=== PATIENT | male | born 1980 | race African-American/Black ===

== ENCOUNTER 2017-03-18 04:55 | Emergency (ER) | payer BC ==
[2017-03-18 05:05] VITALS: BP 144/100
--- NOTE | 2017-03-18 05:43 | EDM.PDOC ---
ED HPI GENERAL MEDICAL PROBLEM - General Chief Complaint: ENT Problem Stated Complaint: CONGESTION HEADACHE Time Seen by Provider: 03/18/17 05:10 Source of Information: Reports: Patient History Limitations: Reports: No Limitations - History of Present Illness INITIAL COMMENTS - FREE TEXT/NARRATIVE: 36-year-old male attends the ED complaining of diffuse mid facial pain and severe nasal congestion. He states he has a problem with allergic rhinitis and intermittently gets sinus infection. States currently he has throbbing pain behind both eyes forehead and in his midface which is worsened when he bends over. Been present for the last several days but become much worse over the last 24 hours to the point that he left the workplace today due to the facial pain and discomfort. He is blowing his nose and getting out green mucus. He is aware of postnasal drip with cough in the mornings. He states this is happened to him on several occasions in the past. No associated fever or chills that he is aware of. He denies a chronic cough or sputum production only first thing in the morning. States his face hurts and is painful to touch particular in the maxillary sinus distribution. Onset: Gradual Onset Date: 03/12/17 Duration: Day(s):, Getting Worse Location: Reports: Head, Face Quality: Reports: Ache, Pressure Severity: Moderate (Rates his pain as 7 or 8 out of 10.) Improves with: Reports: None Worsens with: Reports: Other Context: Denies: Activity, Exercise, Lifting, Sick Contact, Trauma, Other Associated Symptoms: Reports: Cough, Fever/Chills (2 min cough with sputum particular first thing in the morning aware postnasal drip.), Headaches ( Chills but no defined fever), Loss of Appetite ( more facial pain and headache. ), Malaise. 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 He also started an over- the-counter antihistamine without decongestant in it with no relief.), Other ( see below) Headache Pain Score (Numeric/FACES): 10 - Related Data Allergies Allergy/AdvReac Type Severity Reaction Status Date / Time No Known Allergies Allergy Verified 03/18/17 05:05 Home Meds: Home Meds Amoxicillin/Clavulanate K [Augmentin 500 MG\125 MG] 1 tab PO Q12HR #24 tablet [Rx] Loratadine/Pseudoephedrine [Claritin-D 24 Hour Tablet] 1 each PO DAILY #5 tab.er.24h 03/18/17 [Rx] Past Medical History - Past Health History Medical/Surgical History: Denies Medical/Surgical History HEENT History: Reports: Sinusitis Cardiovascular History: Reports: Hypertension Social & Family History - Family History Family Medical History: Noncontributory - Tobacco Use Smoking Status *Q: Never Smoker Years of Tobacco use: 5 - Recreational Drug Use Recreational Drug Use: No - Living Situation & Occupation Living situation: Reports: Single Occupation: Employed ED ROS ENT - Review of Systems Review Of Systems: See Below Constitutional: Reports: Chills, Malaise, Weakness, Decreased Appetite (States food doesn't taste right.). Denies: Fever HEENT: Reports: Glasses, Rhinitis, Sinus Problem. Denies: Contact Lenses, Dental Pain, Ear Discharge, Ear Pain, Eye Discharge, Eye Pain, Hearing Loss, Nosebleed, Nose Pain, Throat Pain, Throat Swelling, Vertigo Respiratory: Reports: Cough. Denies: Hemoptysis (Postnasal drip with intermittent cough of greenish sputum.) Cardiovascular: Reports: No Symptoms Endocrine: Reports: No Symptoms GI/Abdominal: Reports: No Symptoms : Reports: No Symptoms Musculoskeletal: Reports: No Symptoms Skin: Reports: No Symptoms Neurological: Reports: Headache Psychiatric: Reports: No Symptoms ED EXAM, ENT - Physical Exam Exam: See Below Exam Limited By: No Limitations General Appearance: Alert, WD/WN, No Apparent Distress Eye Exam: Bilateral Eye: Normal Inspection Ears: Other (He has evidence of arthrosclerosis or scarring of the right anterior tympanic membrane. He doesn't remember ever rupturing his eardrums. There was no fluid in the middle ear cavities.) Nose: Other (Patient has marked swelling of the turbinates bilaterally particularly on the left side with near complete occlusion. Greenish mucus present in both nares worse on the left side. No nasal polyps identified) Mouth/Throat: Normal Inspection, Normal Gums, Normal Lips Head: Atraumatic, Normocephalic, Sinus Tenderness (Patient has marked tenderness to all sinuses worse on the left side as compared to the right this involves both the ethmoids the frontals and the maxillary sinuses.) Neck: Normal Inspection, Supple, Non-Tender, Full Range of Motion. No: Lymphadenopathy (L), Lymphadenopathy (R) Respiratory/Chest: No Respiratory Distress, Lungs Clear, Normal Breath Sounds, No Accessory Muscle Use Cardiovascular: Normal Peripheral Pulses, Regular Rate, Rhythm, No Edema, No Murmur Skin: Warm, Dry, Intact, Normal Color, No Rash, Other (No evidence of fever at this time) Course - Vital Signs Last Recorded V/S: Last Vital Signs Temp 36.0 C 03/18/17 05:02 Pulse 82 03/18/17 05:02 Resp 16 03/18/17 05:02 BP 144/100 H 03/18/17 05:02 Pulse Ox - Orders/Labs/Meds Meds: Medications Discontinued Medications Generic Name Dose Route Start Last Admin Trade Name Freq PRN Reason Stop Dose Admin Amoxicillin/Clavulanate Potassium 1 tab 03/18/17 05:53 03/18/17 06:09 Augmentin 500 Mg\125 Mg PO 03/18/17 05:54 1 tab ONETIME ONE Administration - Radiology Interpretation Free Text/Narrative:: 36-year-old male presents the ED with diffuse facial and headache pain. History of gradually worsening sinus pressure discomfort over the last week. Believes it was set off by seasonal allergies. He is currently here working on [employer]. Examination suggests diffuse pansinusitis with marked tenderness on the left maxillary and ethmoid and frontal sinuses. The left naris is more occluded in the right on exam with turbinate swelling without polyp formation. He is aware of postnasal drip and productive cough in the mornings. He has hypertension but usually it's well-controlled. Placed him on Claritin-D 24 hour release 1 tablet in the morning for the next 5 consecutive days to promote drainage. Started on antibiotic Augmentin 500 mg twice daily for the next 12 days. First tablet will be provided in the easiest morning since the drug stores will not be open for another 4 hours. Note was given to place him off of work for the next 48 hours and until his symptoms settle down a bit Departure - Departure Time of Disposition: 05:52 Disposition: Home, Self-Care 01 Condition: Fair Clinical Impression: Acute sinusitis Qualifiers: Sinusitis location: pansinusitis Recurrence: non-recurrent Qualified Code(s): J01.40 - Acute pansinusitis, unspecified - Discharge Information Prescriptions: Amoxicillin/Clavulanate K [Augmentin 500 MG\125 MG] 1 tab PO Q12HR #24 tablet Loratadine/Pseudoephedrine [Claritin-D 24 Hour Tablet] 1 each PO DAILY #5 tab.er.24h Instructions: Sinusitis, Adult, [id number] Referrals: PCP,None [Primary Care Provider] - Forms: ED Department Discharge, ED Return to Work/School Form Additional Instructions: Evaluation in the emergency room this morning in regards to diffuse facial pain particularly over the left maxillary sinus as well as ethmoid and frontal sinuses. Clinically you have acute pansinusitis which means multiple of your sinuses are infected at this time. No abnormalities were detected in the middle ear cavities. Treatment is to be antibiotic Augmentin 500 mg twice daily for the next 12 days. First tablet was provided in the ED this morning. Second medication is Claritin-D 24-hour release which is taken first thing in the morning for the next 5 consecutive days to promote drainage of the sinuses and relieve the pressure. Continue Motrin 600 mg every 6 hours or Aleve 2 tablets every 8 hours to relieve pain and inflammation. Expect gradual improvement over the next 48-72 hours.
[2017-03-18] MEDS ORDERED: Amoxicillin/Clavulanate K 500-125 MG Tab PO ONE (05:53)
== END 2017-03-18 06:11 | disposition home or self-care (01) ==
LOC: JD.ED 04:55
DX: J01.40 Acute pansinusitis, unspecified (principal); I10 Essential (primary) hypertension
CPT/HCPCS: 99283; A9270

== ENCOUNTER 2018-01-22 03:12 | Emergency (ER) | payer SELFPAY ==
[2018-01-22] MEDS ORDERED: Ondansetron 4 MG/2 ML SDV IVPUSH ONE (03:59)
[2018-01-22] MEDS ORDERED: Sodium Chloride 0.9% 1,000 ML IV SCH (04:00)
--- NOTE | 2018-01-22 04:01 | EDM.PDOC ---
ED HPI GENERAL MEDICAL PROBLEM - General Chief Complaint: Abdominal Pain Stated Complaint: DIARRHEA Time Seen by Provider: 01/22/18 03:44 Source of Information: Reports: Patient History Limitations: Reports: No Limitations - History of Present Illness INITIAL COMMENTS - FREE TEXT/NARRATIVE: The patient states that he developed watery diarrhea this past Monday, . He experiences about 3-4 episodes per day. He then developed right lower quadrant pain, sharp and stabbing in character, Monday morning, 2017. The pain has slowly been improving since then. He had nausea and emesis Monday morning, and nausea since. No recent urinary symptoms. No recent fever. The patient states that he has tried Pepto-Bismol and a total of 2 tablets of Imodium, without significant relief. The patient states that he ate a salad and some raw vegetables from a [employer] on Monday or Monday, 01/16/2018 or 01/17/2018. No similarly contacts. No recent antibiotics. No recent travel. No prior similar symptoms. The patient states that he has a PCP, but he does not recall her name. The patient's last oral solid food was around 19:30 last night. Right Lower Abdomen Pain Score (Numeric/FACES): 9 - Related Data Allergies Allergy/AdvReac Type Severity Reaction Status Date / Time No Known Allergies Allergy Verified 01/22/18 03:23 Home Meds: Home Meds Loratadine/Pseudoephedrine [Claritin-D 24 Hour Tablet] 1 each PO DAILY #5 tab.er.24h 03/18/17 [Rx] Ondansetron [Zofran ODT] 1 tab PO Q8H PRN #10 tab.dis 01/22/18 [Rx] Past Medical History HEENT History: Reports: Impaired Vision Other HEENT History: wears corrective lenses Social & Family History - Family History Family Medical History: Noncontributory - Tobacco Use Smoking Status *Q: Current Some Day Smoker Years of Tobacco use: 5 Packs/Tins Daily: 0.3 - Caffeine Use Caffeine Use: Reports: Coffee, Energy Drinks - Alcohol Use Alcohol Use History: Yes Alcohol Use Frequency: Socially - Recreational Drug Use Recreational Drug Use: No - Living Situation & Occupation Living situation: Reports: Single, Alone Occupation: Employed ([employer]) ED ROS GENERAL - Review of Systems Review Of Systems: ROS reveals no pertinent complaints other than HPI. ED EXAM, GI/ABD - Physical Exam Exam: See Below Exam Limited By: No Limitations General Appearance: Alert, WD/WN, No Apparent Distress Eyes: Bilateral: Normal Appearance, EOMI Ears: Normal External Exam, Hearing Grossly Normal Nose: Normal Inspection, No Blood Throat/Mouth: Normal Inspection, Normal Lips, Normal Voice, No Airway Compromise Head: Atraumatic, Normocephalic Neck: Normal Inspection, Full Range of Motion Respiratory/Chest: No Respiratory Distress, Lungs Clear, Normal Breath Sounds, No Accessory Muscle Use Cardiovascular: Normal Peripheral Pulses, Regular Rate, Rhythm, No Edema, No Gallop, No JVD, No Murmur, No Rub GI/Abdominal Exam: Normal Bowel Sounds, Soft, No Organomegaly, No Distention, No Abnormal Bruit, No Mass, Tender (Right lower quadrant only. Nontender elsewhere.), Other (Rovsing sign absent. Mapping Analyst sign absent. Psoas sign present. Heel drop sign present.) (Male) Exam: Deferred Rectal (Males) Exam: Deferred Back Exam: Normal Inspection, Full Range of Motion. No: CVA Tenderness (L), CVA Tenderness (R) Extremities: Normal Inspection, Normal Range of Motion, No Pedal Edema, Normal Capillary Refill Neurological: Alert, Oriented, Normal Cognition, No Motor/Sensory Deficits Psychiatric: Normal Affect Skin Exam: Warm, Dry, Intact, Normal Color, No Rash Course - Vital Signs Last Recorded V/S: Last Vital Signs Temp 36.9 C 01/22/18 03:17 Pulse 97 01/22/18 03:17 Resp 18 01/22/18 03:17 BP 138/92 H 01/22/18 03:17 Pulse Ox 97 01/22/18 03:17 - Orders/Labs/Meds Orders: Active Orders 24 hr Category Date Time Status Abdomen Pelvis w Cont [CT] Stat Exams 01/22/18 03:59 Taken UA W/MICROSCOPIC [URIN] Stat Lab 01/22/18 04:02 Ordered Sodium Chloride 0.9% [Normal Saline] 1,000 ml Med 01/22/18 04:00 Active IV ASDIRECTED Sodium Chloride 0.9% [Saline Flush] Med 01/22/18 05:24 Active 10 ml FLUSH ONETIME PRN Medication Orders Sodium Chloride (Normal Saline) 1,000 mls @ 150 mls/hr IV ASDIRECTED YUDI Last Admin: 01/22/18 04:10 Dose: 150 mls/hr Sodium Chloride (Saline Flush) 10 ml FLUSH ONETIME PRN PRN Reason: IV FLUSH Last Admin: 01/22/18 05:34 Dose: 10 ml Labs: Laboratory Tests 01/22/18 01/22/18 01/22/18 Range/Units 04:02 04:10 04:10 WBC 7.24 (4.23-9.07) K/mm3 RBC 5.58 (4.63-6.08) M/mm3 Hgb 15.8 (13.7-17.5) gm/L Hct 45.7 (40.1-51.0) % MCV 81.9 (79.0-92.2) fl MCH 28.3 (25.7-32.2) pg MCHC 34.6 (32.2-35.5) g/dl RDW Std Deviation 39.8 (35.1-43.9) fL Plt Count 251 (163-337) K/mm3 MPV 11.3 (9.4-12.3) fl Neutrophils % (Manual) 49 (40-60) % Band Neutrophils % 0 (0-10) % Lymphocytes % (Manual) 41 H (20-40) % Atypical Lymphs % 3 % Monocytes % (Manual) 5 (2-10) % Eosinophils % (Manual) 2 (0.8-7.0) % Basophils % (Manual) 0 L (0.2-1.2) Platelet Estimate Adequate Plt Morphology Comment Normal RBC Morph Comment Normal Sodium 145 (136-145) mEq/L Potassium 3.8 (3.5-5.1) mEq/L Chloride 110 H (98-107) mEq/L Carbon Dioxide 22 (21-32) mEq/L Anion Gap 16.8 H (5-15) BUN 25 H (7-18) mg/dL Creatinine 1.1 (0.7-1.3) mg/dL Est Cr Clr Drug Dosing 76.24 mL/min Estimated GFR (MDRD) > 60 (>60) mL/min BUN/Creatinine Ratio 22.7 H (14-18) Glucose 84 (74-106) mg/dL Calcium 9.2 (8.5-10.1) mg/dL Total Bilirubin 0.4 (0.2-1.0) mg/dL AST 13 L (15-37) U/L ALT 30 (16-63) U/L Alkaline Phosphatase 72 (46-116) U/L Total Protein 7.4 (6.4-8.2) g/dl Albumin 4.0 (3.4-5.0) g/dl Globulin 3.4 gm/dL Albumin/Globulin Ratio 1.2 (1-2) Lipase 157 (73-393) U/L Urine Color Yellow (Yellow) Urine Appearance Clear (Clear) Urine pH 6.0 (5.0-8.0) Ur Specific [place] > or = 1.030 (1.005-1.030) Urine Protein Negative (Negative) Urine Glucose (UA) Negative (Negative) Urine Ketones Negative (Negative) Urine Occult Blood Negative (Negative) Urine Nitrite Negative (Negative) Urine Bilirubin Negative (Negative) Urine Urobilinogen 0.2 (0.2-1.0) Ur Leukocyte Esterase Negative (Negative) Urine RBC 0-5 (0-5) /hpf Urine WBC 0-5 (0-5) /hpf Ur Epithelial Cells 0-5 (0-5) /hpf Urine Bacteria Not seen (FEW) /hpf Hyaline Casts 0-5 (0-5) /lpf Urine Mucus Many H (FEW) /hpf Meds: Medications Generic Name Dose Route Start Last Admin Trade Name Freq PRN Reason Stop Dose Admin Sodium Chloride 1,000 mls @ 150 mls/hr 01/22/18 04:00 01/22/18 04:10 Normal Saline IV 150 mls/hr ASDIRECTED YUDI Administration Sodium Chloride 10 ml 01/22/18 05:24 01/22/18 05:34 Saline Flush FLUSH 10 ml ONETIME PRN Administration IV FLUSH Discontinued Medications Generic Name Dose Route Start Last Admin Trade Name Freq PRN Reason Stop Dose Admin Diatrizoate Meglum/Diatrizoate Sod 120 ml 01/22/18 05:35 01/22/18 05:35 Gastrografin 37% PO 01/22/18 05:36 90 ml ONETIME ONE Administration Iopamidol 150 ml 01/22/18 05:24 01/22/18 05:34 Isovue-300 (61%) IVPUSH 01/22/18 05:25 125 ml ONETIME ONE Administration Ondansetron HCl 4 mg 01/22/18 03:59 01/22/18 04:11 Zofran IVPUSH 01/22/18 04:00 4 mg ONETIME ONE Administration - Re-Assessments/Exams Free Text/Narrative Re-Assessment/Exam: 01/22/18 04:01 I am concerned that the patient may have appendicitis. I have ordered a workup that included blood work, urinalysis, and a CT scan of the abdomen and pelvis with oral and IV contrast. I have ordered IV fluid and IV Zofran, however, the patient declined an offer for pain medication. 01/22/18 06:06 CT of the abdomen and pelvis with oral and IV contrast is read by [facility] as: 1. Normal appendix right lower quadrant 2. Bilateral 3 mm nonobstructing renal calculi 3. No evidence for ureterolithiasis 01/22/18 07:01 Test results discussed with the patient. Today's workup is grossly unremarkable , and does not expand the cause of the patient's symptoms. The patient does not have appendicitis. He is likely suffering from viral gastroenteritis. I will prescribe Zofran, and the patient can take [id number] Imodium. I would like to stay well hydrated. The patient requested a note to be able to return to work tomorrow. Departure - Departure Time of Disposition: 07:02 Disposition: Home, Self-Care 01 Condition: Good Clinical Impression: Viral gastroenteritis - Discharge Information Referrals: PCP,Unknown [Primary Care Provider] - Forms: ED Department Discharge, ED Return to Work/School Form Additional Instructions: You were seen in the emergency room for nausea, vomiting, watery diarrhea, and lower right abdominal pain. Workup in the ER included blood work, a urinalysis, and a CT scan of your abdomen and pelvis. Your entire workup was unremarkable, and does not explain the cause of your symptoms. You do not have appendicitis. Based on your history and physical examination, you MOST LIKELY have a viral gastroenteritis. Fortunately, there are no medicines to get rid of a viral illness - it will have to run its course. A prescription for the anti-nausea medicine Zofran has been sent to the [facility], [address], across the [address] from [facility]. Dissolve 1 tablet on your tongue up to every 8 hours, as needed for nausea/ vomiting. Take [id number] Imodium (loperamide) as directed on the package, as needed for diarrhea. Stay adequately hydrated. If your symptoms persist, please follow-up with your PCP, for further evaluation and treatment. A note to allow you to return to work tomorrow, 01/23/2018, has been provided. If any other problems, please do not hesitate to return to the ER. - My Orders Last 24 Hours: My Active Orders 01/22/18 03:59 Abdomen Pelvis w Cont [CT] Stat 01/22/18 04:00 Sodium Chloride 0.9% [Normal Saline] 1,000 ml IV ASDIRECTED 01/22/18 04:02 UA W/MICROSCOPIC [URIN] Stat 01/22/18 05:24 Sodium Chloride 0.9% [Saline Flush] 10 ml FLUSH ONETIME PRN - Assessment/Plan Last 24 Hours: My Active Orders 01/22/18 03:59 Abdomen Pelvis w Cont [CT] Stat 01/22/18 04:00 Sodium Chloride 0.9% [Normal Saline] 1,000 ml IV ASDIRECTED 01/22/18 04:02 UA W/MICROSCOPIC [URIN] Stat 01/22/18 05:24 Sodium Chloride 0.9% [Saline Flush] 10 ml FLUSH ONETIME PRN
[2018-01-22] MEDS ORDERED: Iopamidol 612 MG/ML 150 ML Bottle IVPUSH ONE (05:24)
[2018-01-22] MEDS ORDERED: Sodium Chloride 0.9% 10 ML Syringe FLUSH PRN (05:24)
[2018-01-22] MEDS ORDERED: Diatrizoate Meglumine/Diatrizoate Sodium 37% 120 ML Bottle PO ONE (05:35)
[2018-01-22 07:08] VITALS: BP 126/80
--- NOTE | 2018-01-22 08:54 | CT ---
CT abdomen and pelvis Technique: Multiple axial sections were obtained from above the dome of the diaphragm inferiorly through the pubic symphysis. Intravenous and oral contrast was utilized. Delayed images were also obtained through the bladder. Comparison: No prior abdominal imaging. Findings: Appendix is seen which is normal in size. Several nonobstructing stones are identified within both kidneys measuring less than 1 cm. No ureteral dilatation or ureteral stone is seen. Visualized lung bases show nothing acute. Mild fatty infiltration is seen within the liver. Spleen appears normal. Adrenal glands show no nodule. Kidneys show symmetric contrast enhancement. Pancreas is within normal limits. Gallbladder contains no calcified gallstones. Aorta shows no aneurysmal dilatation. No retroperitoneal adenopathy is seen. No mesenteric abnormalities are seen. No pelvic mass or adenopathy is seen. Delayed images show contrast within the bladder. Bone window settings were reviewed which appear within normal limits for the patient's age. Impression: 1. Several nonobstructing calculi within both kidneys. No ureteral stone is seen. 2. Appendix is seen which is normal in size. 3. Fatty infiltration within the liver. 4. Nothing acute is seen on CT study of the abdomen and pelvis. Diagnostic code #2 I agree with preliminary report issued by [facility] ([facility] preliminary report dictated on 01/22/18, 6:48 AM Central Time)
== END 2018-01-22 07:13 | disposition home or self-care (01) ==
LOC: JD.ED 03:12
DX: A08.4 Viral intestinal infection, unspecified (principal); F17.210 Nicotine dependence, cigarettes, uncomplicated
CPT/HCPCS: 36415; 74177; 80053; 81001; 83690; 85007; 85027; 96361; 96374; 99284; J2405; J7040; J7050; Q9963; Q9967

== ENCOUNTER 2018-04-25 07:34 | Emergency (ER) | payer OTHER ==
[2018-04-25 07:42] VITALS: BP 149/93
[2018-04-25] MEDS ORDERED: Tamsulosin 0.4 MG Cap.ER PO ONE (07:56)
[2018-04-25] MEDS ORDERED: Ketorolac 30 MG/ML SDV IVPUSH STA (07:56)
[2018-04-25] MEDS ORDERED: HYDROmorphone 0.5 MG/0.5 ML SYRINGE IVPUSH STA (07:57)
--- NOTE | 2018-04-25 07:59 | EDM.PDOC ---
ED HPI GENERAL MEDICAL PROBLEM - General Chief Complaint: Genitourinary Problem Stated Complaint: KIDNEY PAIN AND URINATING BLOOD Time Seen by Provider: 04/25/18 07:44 Source of Information: Reports: Patient, RN Notes Reviewed History Limitations: Reports: No Limitations - History of Present Illness INITIAL COMMENTS - FREE TEXT/NARRATIVE: The patient was seen by me in this ED on 01/22/2018, at that time for complaint of diarrhea and right lower quadrant abdominal pain. Part of his workup included a CT scan of the abdomen and pelvis with oral and IV contrast, which demonstrated several nonobstructing calculi in both kidneys. The patient did not have a previously known history of ureterolith's. The patient now presents with right flank pain, sharp in character, that does not radiate, since 04/22/2018. He then developed gross hematuria this morning. He has not had any fever. He occasionally has dysuria, and may have slightly increased urinary frequency. No prior similar symptoms. The patient states that he has been taking Tylenol and Aleve. His most recent dose of Aleve was last night. The patient states that he saw his PCP, Ally Kim, about a week ago for back pain. A MRI was performed, which returned negative. The patient states that his current flank pain is different than his back pain. Right Flank Pain Score (Numeric/FACES): 9 - Related Data Allergies Allergy/AdvReac Type Severity Reaction Status Date / Time No Known Allergies Allergy Verified 04/25/18 07:39 Home Meds: Home Meds Naproxen Sodium [Aleve] 220 mg PO Q6HR PRN 04/25/18 [History] Past Medical History HEENT History: Reports: Allergic Rhinitis, Impaired Vision Other HEENT History: wears corrective lenses Respiratory History: Reports: Sleep Apnea Endocrine/Metabolic History: Reports: Obesity/BMI 30+ Social & Family History - Family History Family Medical History: Noncontributory - Tobacco Use Smoking Status *Q: Current Some Day Smoker Years of Tobacco use: 5 Packs/Tins Daily: 0.3 - Caffeine Use Caffeine Use: Reports: None - Alcohol Use Alcohol Use History: Yes Alcohol Use Frequency: Socially - Recreational Drug Use Recreational Drug Use: No - Living Situation & Occupation Living situation: Reports: Single, Alone Occupation: Employed ([employer] ED ROS GENERAL - Review of Systems Review Of Systems: ROS reveals no pertinent complaints other than HPI. ED EXAM, RENAL/ - Physical Exam Exam: See Below Exam Limited By: No Limitations General Appearance: Alert, WD/WN, No Apparent Distress Eye Exam: Bilateral Eye: EOMI, Normal Inspection Ears: Normal External Exam, Hearing Grossly Normal Nose: Normal Inspection, No Blood Throat/Mouth: Normal Inspection, Normal Lips, Normal Voice, No Airway Compromise Head: Atraumatic, Normocephalic Neck: Normal Inspection, Full Range of Motion Respiratory/Chest: No Respiratory Distress, Lungs Clear, Normal Breath Sounds, No Accessory Muscle Use Cardiovascular: Normal Peripheral Pulses, Regular Rate, Rhythm, No Edema, No Gallop, No JVD, No Murmur, No Rub GI/Abdominal: Normal Bowel Sounds, Soft, Non-Tender, No Organomegaly, No Distention, No Abnormal Bruit, No Mass, Other (Obese) (Male) Exam: Deferred Rectal (Males) Exam: Deferred Back Exam: Normal Inspection, Full Range of Motion, CVA Tenderness (R). No: CVA Tenderness (L) Extremities: Normal Inspection, Normal Range of Motion, No Pedal Edema, Normal Capillary Refill Neurological: Alert, Oriented, Normal Cognition, No Motor/Sensory Deficits Psychiatric: Normal Affect Skin Exam: Warm, Dry, Intact, Normal Color, No Rash Course - Vital Signs Last Recorded V/S: Last Vital Signs Temp 36.9 C 04/25/18 07:39 Pulse 84 04/25/18 07:39 Resp 16 04/25/18 07:39 BP 149/93 H 04/25/18 07:39 Pulse Ox 98 04/25/18 07:39 - Orders/Labs/Meds Orders: Active Orders 24 hr Category Date Time Status Abdomen Pelvis wo Cont [CT] Stat Exams 04/25/18 07:56 Taken Sodium Chloride 0.9% [Normal Saline] 1,000 ml Med 04/25/18 08:00 Active IV ASDIRECTED Medication Orders Sodium Chloride (Normal Saline) 1,000 mls @ 150 mls/hr IV ASDIRECTED YUDI Last Admin: 04/25/18 08:14 Dose: 150 mls/hr Labs: Laboratory Tests 04/25/18 Range/Units 08:02 Urine Color Dark yellow (Yellow) Urine Appearance Slt cloudy H (Clear) Urine pH 6.0 (5.0-8.0) Ur Specific [place] > or = 1.030 (1.005-1.030) Urine Protein Negative (Negative) Urine Glucose (UA) Negative (Negative) Urine Ketones Negative (Negative) Urine Occult Blood Negative (Negative) Urine Nitrite Negative (Negative) Urine Bilirubin Negative (Negative) Urine Urobilinogen 0.2 (0.2-1.0) Ur Leukocyte Esterase Negative (Negative) Urine RBC 0-5 (0-5) /hpf Urine WBC 0-5 (0-5) /hpf Ur Epithelial Cells 0-5 (0-5) /hpf Urine Bacteria Few (FEW) /hpf Urine Mucus Many H (FEW) /hpf Meds: Medications Generic Name Dose Route Start Last Admin Trade Name Freq PRN Reason Stop Dose Admin Sodium Chloride 1,000 mls @ 150 mls/hr 04/25/18 08:00 04/25/18 08:14 Normal Saline IV 150 mls/hr ASDIRECTED YUDI Administration Discontinued Medications Generic Name Dose Route Start Last Admin Trade Name Freq PRN Reason Stop Dose Admin Hydromorphone HCl 1 mg 04/25/18 07:57 04/25/18 08:14 Dilaudid IVPUSH 04/25/18 07:58 1 mg ONETIME STA Administration Ketorolac Tromethamine 30 mg 04/25/18 07:56 04/25/18 08:13 Toradol IVPUSH 04/25/18 07:57 30 mg ONETIME STA Administration Tamsulosin HCl 0.4 mg 04/25/18 07:56 04/25/18 08:14 Flomax PO 04/25/18 07:57 0.4 mg ONETIME ONE Administration - Re-Assessments/Exams Free Text/Narrative Re-Assessment/Exam: 04/25/18 07:58 With right flank pain, gross hematuria, and right CVA tenderness, the patient most likely has a right ureterolith. I have ordered a urinalysis and CT of the abdomen and pelvis without contrast. The patient will receive Dilaudid, Toradol , Flomax, and IV fluid. The patient drove himself here, but states that he will take a cab home. 04/25/18 08:23 Curiously, the patient's urinalysis is normal, with no occult blood or RBCs. 04/25/18 08:57 CT of the abdomen and pelvis without contrast is read by Dr. Valdovinos as: 1. Slightly enlarged appendix at 9.8 mm. This is an interval change from previous exam and early appendicitis is a possibility. Please correlate with patient's symptoms and white count. 2. Nonobstructing calculi within both kidneys. No ureteral dilatation or ureteral stone is seen. 3. No additional abnormality seen on noncontrast CT study of the abdomen and pelvis performed as a ureteral stone protocol. 04/25/18 09:08 Test results discussed with the patient, and the patient was reexamined. He does not tenderness to palpation of his abdomen, and he does have right CVA tenderness. Clinically, he does not have appendicitis. The cause of his right flank pain is unclear, but may be related to the back pain that prompted him to undergo a MRI recently. I will refer the patient to Dr. Watson, should he develop right lower quadrant abdominal pain. Departure - Departure Time of Disposition: 09:11 Disposition: Home, Self-Care 01 Condition: Good Clinical Impression: Right flank pain - Discharge Information *PRESCRIPTION DRUG MONITORING PROGRAM REVIEWED*: Not Applicable *COPY OF PRESCRIPTION DRUG MONITORING REPORT IN PATIENT AZEB: Not Applicable Referrals: Ally Kim PA-C [Primary Care Provider] - Jean Watson MD [Physician] - Forms: ED Department Discharge Additional Instructions: You were seen in the emergency room for right flank pain and the appearance of blood in your urine. Workup in the ER included a urinalysis and a CT scan of your abdomen and pelvis without contrast. Your urine returned normal. You do not have blood in your urine, and you do not have a urinary tract infection. The CT scan of your abdomen and pelvis found that your appendix was mildly enlarged, and while you have stones in your kidneys, you do not have stones in your ureter. The cause of your pain is unclear. If you develop lower right abdominal pain, either follow-up with the surgeon Dr. Jean Watson, or return to the ER for reevaluation. - My Orders Last 24 Hours: My Active Orders 04/25/18 07:56 Abdomen Pelvis wo Cont [CT] Stat 04/25/18 08:00 Sodium Chloride 0.9% [Normal Saline] 1,000 ml IV ASDIRECTED - Assessment/Plan Last 24 Hours: My Active Orders 04/25/18 07:56 Abdomen Pelvis wo Cont [CT] Stat 04/25/18 08:00 Sodium Chloride 0.9% [Normal Saline] 1,000 ml IV ASDIRECTED
[2018-04-25] MEDS ORDERED: Sodium Chloride 0.9% 1,000 ML IV SCH (08:00)
--- NOTE | 2018-04-25 09:17 | CT ---
CT abdomen and pelvis Technique: Multiple axial sections were obtained from above the dome of the diaphragm inferiorly through the pubic symphysis. Intravenous and oral contrast not utilized. Study has been performed as a ureteral stone protocol. Comparison: Prior CT exam of 01/22/18 is available. Findings: Small nonobstructing calculi are seen within both kidneys. These nonobstructing calculi measure 6 mm or less in size. No ureteral dilatation is seen. No abnormal calcifications are seen along the course of the ureters. Visualized lung bases show nothing acute. Noncontrast appearance of the liver and spleen appear within normal limits. Adrenal glands show no nodule. Pancreas is within normal limits. Gallbladder contains no calcified gallstones. Aorta shows no aneurysm. No retroperitoneal adenopathy is seen. No pelvic mass or adenopathy is seen. Appendix is mildly prominent in size with thickness of about 9.8 mm. This is an interval change from previous exam. Findings suggest the possibility of early appendicitis. Bone window settings were reviewed which appear within normal limits for the patient's age. Impression: 1. Slightly enlarged appendix at 9.8 mm. This is an interval change from previous exam and early appendicitis is a possibility. Please correlate with patient's symptoms and white count. 2. Nonobstructing calculi within both kidneys. No ureteral dilatation or ureteral stone is seen. 3. No additional abnormality seen on noncontrast CT study of the abdomen and pelvis performed as a ureteral stone protocol. Diagnostic code #5
[2018-04-25] MEDS ORDERED: Ondansetron 4 MG/2 ML SDV IVPUSH ONE (09:21)
== END 2018-04-25 09:36 | disposition home or self-care (01) ==
LOC: JD.ED 07:34
DX: R10.9 Unspecified abdominal pain (principal); F17.210 Nicotine dependence, cigarettes, uncomplicated
CPT/HCPCS: 74176; 81001; 96361; 96374; 96375; 99284; A9270; J1170; J1885; J2405; J7040